=== PATIENT | female | born 1940 | race Caucasian/White ===

== ENCOUNTER → 2020-12-31 | Outpatient (CLI) | payer MEDICARE ==
[~2020-12-31] MED LIST: ALBUTEROL SULF8.5 GM; ALBUTEROL0.63 MG/3 INH; AMIODARONE HCL200 MG PO; AZITHROMYCIN250 MG PO; BENZONATATE100 MG PO; BENZONATATE200 MG PO; BREO ELLIPTA INH; CETIRIZINE HCL10 MG PO; CLONAZEPAM0.5 MG PO; CLONIDINE HCL0.1 MG PO; DIGOXIN125 MCG PO; DIOVAN160 MG PO; ELIQUIS PO; FERROUS SULFAT325 MG PO; GEMFIBROZIL600 MG PO; GLIMEPIRIDE2 MG PO; GLIPIZIDE5 MG; METFORMIN HCL500 M1 PO; METOPROLOL TART25 MG PO; PROAIR HFA INH8.5 GM INH; WARFARIN SODIU7.5 MG PO; WARFARIN SODIUM5 MG PO; reflux medication PO
== END ==
LOC: US 10:24
PROVIDERS: ATTEND Family Medicine
DX: N39.0 Urinary tract infection, site not specified (principal); N39.3 Stress incontinence (female) (male)
CPT/HCPCS: 76770; 76857